=== PATIENT | male | born 1965 | race Caucasian/White ===

== ENCOUNTER 2022-07-22 04:53 | Day surgery (SDC) | payer BC ==
[2022-07-19 09:38] VITALS: BMI 48.6
[2022-07-22 09:28] VITALS: TEMP 97.9
[2022-07-22 09:47] VITALS: BP 101/52; PULSE 73; RESP 14
== END 2022-07-22 09:40 | disposition home or self-care (01) ==
LOC: JASU-ENDO 04:53
PROVIDERS: ATTEND Internal Medicine Gastroenterology
PROC: 0DBH8ZX Excision of Cecum, Via Natural or Artificial Opening Endoscopic, Diagnostic (ICD-10-PCS; principal; 2022-07-22 08:00)
DX: D12.0 Benign neoplasm of cecum (principal); K64.8 Other hemorrhoids; K57.30 Diverticulosis of large intestine without perforation or abscess without bleeding
CPT/HCPCS: 88305-TC